=== PATIENT | male | born 1970 | race Caucasian/White ===

== ENCOUNTER 2017-09-24 06:50 | Emergency (ER) | payer OTHER ==
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
== END 2017-09-24 07:25 | disposition home or self-care (01) ==
LOC: JD.ED 06:50
DX: Z04.1 Encounter for examination and observation following transport accident (principal)
CPT/HCPCS: 99283; 99284